=== PATIENT | male | born 1955 | race African-American/Black ===

== ENCOUNTER 2018-10-22 21:52 | Emergency (ER) | payer SELFPAY | END 2018-10-22 22:05 | disposition left against medical advice (07) | LOC: ER 21:52 | DX: R06.02 Shortness of breath (principal); R07.9 Chest pain, unspecified; Z53.21 Procedure and treatment not carried out due to patient leaving prior to being seen by health care provider ==

== ENCOUNTER 2018-10-23 02:20 | Emergency (ER) | payer MEDICAID ==
[~2018-10-23] VITALS: Ht 175.3 cm; Wt 64.0 kg
[2018-10-23] MEDS ORDERED: ASPIRIN 81MG TABLET PO ONE (06:00)
[2018-10-23 06:02] LABS: BASOPHILS % 0.5 % (0.0-2.0); HEMOGLOBIN. 13.4 g/dL (14.0-18.0); LYMPHOCYTES % 30.5 % (20.0-50.0); MEAN CORPUSCULAR HEMOGLOBIN 29.4 pg (28.0-32.0); MEAN CORPUSCULAR VOLUME 85.5 fL (80.0-94.0); MEAN PLATELET VOLUME 7.9 fl (7.4-10.4); MONOCYTES % 12.1 % (2.0-8.0); NEUTROPHILS % 54.9 % (40.0-76.0); PLATELET 149 x1000/uL (130-400); RED BLOOD CELL COUNT 4.56 mill/uL (4.7-6.1); RED CELL DISTRIBUTION WIDTH 14.6 % (11.6-14.6)
[2018-10-23 06:09] LABS: CHLORIDE 105 mEq/L (98-107)
[2018-10-23 09:48] VITALS: BP 140/88
== END 2018-10-23 09:52 | disposition home or self-care (01) ==
LOC: ER 02:20 → CANBEDREQ 09:26 → ER 09:52
DX: R07.89 Other chest pain (principal); D64.9 Anemia, unspecified; Z59.0 Homelessness; R03.0 Elevated blood-pressure reading, without diagnosis of hypertension; F17.210 Nicotine dependence, cigarettes, uncomplicated
CPT/HCPCS: 36415; 71045; 83880; 84484; 85379; 93005; 99284